=== PATIENT | male | born 1960 | race Caucasian/White ===

== ENCOUNTER 2016-08-01 15:39 | Emergency (ER) | payer MEDICARE, OTHER | END 2016-08-01 19:49 | disposition left against medical advice (07) | LOC: ER 15:39 | DX: Z53.21 Procedure and treatment not carried out due to patient leaving prior to being seen by health care provider (principal) ==

== ENCOUNTER 2017-01-05 09:49 | Emergency (ER) | payer MEDICARE, OTHER | END 2017-01-05 10:06 | disposition home or self-care (01) | LOC: ER 09:49 | DX: H60.91 Unspecified otitis externa, right ear (principal); H92.01 Otalgia, right ear; I10 Essential (primary) hypertension; Z79.1 Long term (current) use of non-steroidal anti-inflammatories (NSAID); F17.210 Nicotine dependence, cigarettes, uncomplicated; Z88.6 Allergy status to analgesic agent; Z88.8 Allergy status to other drugs, medicaments and biological substances | CPT/HCPCS: 99282; 99283 ==